=== PATIENT | female | born 1955 | race Caucasian/White ===

== ENCOUNTER 2017-07-07 15:55 | Emergency (ER) | payer BC ==
[2017-07-07] MEDS: KETOROLAC 30 MG INJ IM (18:38)
== END 2017-07-07 20:38 | disposition home or self-care (01) ==
LOC: FTE 15:55
DX: S46.911A Strain of unspecified muscle, fascia and tendon at shoulder and upper arm level, right arm, initial encounter (principal); S19.9XXA Unspecified injury of neck, initial encounter; E11.9 Type 2 diabetes mellitus without complications; I10 Essential (primary) hypertension; W18.39XA Other fall on same level, initial encounter; Y92.89 Other specified places as the place of occurrence of the external cause; Z79.4 Long term (current) use of insulin; Z79.82 Long term (current) use of aspirin
CPT/HCPCS: 72040; 72100; 73030-RT; 96372; 99284-25

== ENCOUNTER 2017-11-19 06:48 | Emergency (ER) | payer BC ==
[2017-11-19] MEDS: KETOROLAC 30 MG INJ IM (08:30)
== END 2017-11-19 09:15 | disposition home or self-care (01) ==
LOC: FTE 06:48
DX: M79.601 Pain in right arm (principal); M54.2 Cervicalgia; I10 Essential (primary) hypertension; E11.9 Type 2 diabetes mellitus without complications; Z79.4 Long term (current) use of insulin; Z79.82 Long term (current) use of aspirin
CPT/HCPCS: 72125; 93971; 96372; 99285-25

== ENCOUNTER 2018-10-12 17:32 | Emergency (ER) | payer BC | END 2018-10-12 18:41 | disposition home or self-care (01) | LOC: E/R 17:32 | DX: M25.561 Pain in right knee (principal); E11.9 Type 2 diabetes mellitus without complications; I10 Essential (primary) hypertension; Z79.4 Long term (current) use of insulin; Z79.82 Long term (current) use of aspirin | CPT/HCPCS: 73562; 99283-25 ==

== ENCOUNTER 2018-11-24 16:35 | Emergency (ER) | payer BC ==
[2018-11-24] MEDS: DIAZEPAM 5 MG TAB PO (17:33)
[2018-11-24] MEDS: DEXAMETHASONE 10 MG/ML 1 ML INJ IM (17:33)
[2018-11-24] MEDS: HYDROCODONE/APAP (5/325) TAB PO (18:39)
== END 2018-11-24 18:42 | disposition home or self-care (01) ==
LOC: FTE 16:35
DX: M54.41 Lumbago with sciatica, right side (principal); I10 Essential (primary) hypertension; E11.9 Type 2 diabetes mellitus without complications; Z79.4 Long term (current) use of insulin; Z79.82 Long term (current) use of aspirin
CPT/HCPCS: 96372; 99284-25